=== PATIENT | female | born 1930 | race Caucasian/White ===

== ENCOUNTER 2018-06-28 07:39 | Outpatient (RCR) | payer MEDICARE, MEDICAID | END 2018-09-07 | disposition home or self-care (01) | LOC: ONC 07:39 | PROVIDERS: ATTEND Radiology Radiation Oncology | DX: Z51.0 Encounter for antineoplastic radiation therapy (principal); C50.911 Malignant neoplasm of unspecified site of right female breast; C79.51 Secondary malignant neoplasm of bone | CPT/HCPCS: 77280; 77290; 77295; 77300; 77334; 77336; 77417; 77470; 99214 ==

== ENCOUNTER 2018-09-19 04:10 | Inpatient (IN) | payer MEDICARE, MEDICAID ==
[2018-09-19] VITALS (24 sets, daily range): BP systolic 106–163; BP diastolic 56–108
[~2018-09-19] VITALS: Ht 149.9 cm; Wt 54.0 kg
[2018-09-19] MEDS ORDERED: DILTIAZEM IV FOR DRIP 125 MG in NS (IVPB) 100 ML IV SCH (05:00)
[2018-09-19 05:26] LABS: BASOPHILS # (AUTO) 0.1 10^3/uL (0.0-0.1); BASOPHILS % (AUTO) 1 % (0-10); EOSINOPHILS # (AUTO) 0.4 10^3/uL (0.0-0.3); EOSINOPHILS % (AUTO) 7 % (0-10); HEMATOCRIT 32 % (35-52); HEMOGLOBIN 10.7 G/DL (11.5-16.0); LYMPHOCYTES # (AUTO) 0.7 X 10^3 (1.0-4.0); LYMPHOCYTES % (AUTO) 13 % (12-44); MEAN CORPUSCULAR HEMOGLOBIN 35 PG (25-34); MEAN CORPUSCULAR HGB CONC 34 G/DL (32-36); MEAN CORPUSCULAR VOLUME 103 FL (80-99); MEAN PLATELET VOLUME 9.4 FL (7.4-10.4); MONOCYTES # (AUTO) 0.8 X 10^3 (0.0-1.0); MONOCYTES % (AUTO) 14 % (0-12); NEUTROPHILS # (AUTO) 3.6 X 10^3 (1.8-7.8); NEUTROPHILS % (AUTO) 65 % (42-75); PLATELET COUNT 227 10^3/uL (130-400); RED CELL DISTRIBUTION WIDTH 13.5 % (10.0-14.5); WHITE BLOOD COUNT 5.5 10^3/uL (4.3-11.0)
--- NOTE | 2018-09-19 05:27 | Pulmonary Consultation ---
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 Allergies and Home Medications Allergies Coded Allergies: cefdinir (Verified Allergy, Mild, 09/19/18) esomeprazole (Verified Allergy, Mild, 09/19/18) metoclopramide (Verified Allergy, Mild, 09/19/18) Sepsis Event Evaluation Height, Weight, BMI Height: '" Weight: lbs. oz. kg; BMI Method: Exam Exam Vital Signs Date Time Temp Pulse Resp B/P (MAP) Pulse Ox O2 Delivery O2 Flow Rate FiO2 09/19/18 04:15 98.2 76 16 115/56 (75) 99 Room Air Height & Weight Height: '" Weight: lbs. oz. kg; BMI Method: Assessment/Plan Assessment/Plan Afib rvr -Cardizem gtt -Cardiology consulted -NS at 75 -Labs and CXR pending Hx of breast cancer with mets to bone and lung -Undergoing chemo/radiation JULIET LINARES DO Sep 19, 2018 05:27
[2018-09-19 05:47] LABS: BUN/CREATININE RATIO 20; CALCIUM 9.1 MG/DL (8.5-10.1); CARBON DIOXIDE 18 MMOL/L (21-32); CHLORIDE 105 MMOL/L (98-107); CREATININE SERUM 1.22 MG/DL (0.60-1.30); GFR ESTIMATED 42; GLUCOSE 112 MG/DL (70-105); MAGNESIUM 2.1 MG/DL (1.8-2.4); PHOSPHORUS 4.3 MG/DL (2.3-4.7); POTASSIUM 4.6 MMOL/L (3.6-5.0); SODIUM 135 MMOL/L (135-145)
[2018-09-19] MEDS: KCL 20 MEQ TAB (K-DUR) PO SCH (06:03)
[2018-09-19] MEDS: POTASSIUM CL 10MEQ/50ML IVPB 50 ML IV SCH (06:03)
[2018-09-19] MEDS: MAGNESIUM 1 GM/100 ML IVPB 100 ML IV SCH (06:03)
[2018-09-19] MEDS ORDERED: ENOXAPARIN 60 MG/0.6 ML (LOVENOX) SYR SC SCH (08:00)
[2018-09-19] MEDS: NS IV 1000 ML 1,000 ML IV SCH ×2 (08:05→19:33)
--- NOTE | 2018-09-19 11:29 | History & Physical-Hospitalist ---
History of Present Illness HPI/Chief Complaint The patient is an 88-year-old female from the [place], [place] area. She had presented to the emergency room there and was found to have an apparent new onset atrial fibrillation with rapid ventricular response in addition she has known metastatic carcinoma of the breast. The physician in the emergency room [facility]. He had placed her on a Cardizem drip and had observed her to revert to a sinus rhythm. She apparently had some problem with the thought of transfer to [facility] and [facility]ol[facility] was on admission diversion. Therefore he called the switch board to speak to the hospitalist and it was agreed that she be transferred here. When she arrived she had been off of her Cardizem drip and had reverted to her atrial fibrillation. Cardiology had been consulted. Date Seen 09/19/18 Time Seen by a Provider: 12:00 Attending Physician Duke Meneses MD PCP Referring Physician Date of Admission Sep 19, 2018 at 04:10 Home Medications & Allergies Home Medications Reviewed patient Home Medication Reconciliation performed by pharmacy medication reconciliations x ray service technician and/or nursing. Patients Allergies have been reviewed. Allergies Allergies Coded Allergies cefdinir (Verified Allergy, Mild, 09/19/18) esomeprazole (Verified Allergy, Mild, 09/19/18) metoclopramide (Verified Allergy, Mild, 09/19/18) Past Vihnvne-Ifybxy-Wvumca Hx Patient Social History Alcohol Use: Denies Use Recreational Drug Use: No Physical Abuse Screen: No Sexual Abuse: No Recent Hopitalizations: No Seasonal Allergies Seasonal Allergies: No Past Medical History Cancer: Bone, Lung, Breast Did You Recieve Any Treatments: Yes What Type of Treatment Did You: Chemotherapy, Radiation, Surgical Intervention Cancer: RIGHT MASTECTOMY History of Blood Disorders: No Adverse Reaction to Blood Hernandez: No Review of Systems Constitutional: see HPI EENTM: no symptoms reported Respiratory: dyspnea on exertion Cardiovascular: other (although not previously documented, the patient reports that she has had this sensation of palpitations before.) Gastrointestinal: nausea, vomiting Genitourinary: no symptoms reported Musculoskeletal: no symptoms reported Skin: no symptoms reported Psychiatric/Neurological: No Symptoms Reported Physical Exam Physical Exam Vital Signs Vital Signs - First Documented 09/19/18 04:15 Temp 98.2 Capillary Refill : Less Than 3 Seconds Height, Weight, BMI Height: 4'11.00" Weight: 115lbs. 1.0oz. [id number]; 23.2 BMI Method: General Appearance: No Apparent Distress, WD/WN Eyes: Bilateral Eye Normal Inspection HEENT: Normal ENT Inspection Neck: Full Range of Motion Respiratory: Chest Non Tender, Lungs Clear, Normal Breath Sounds, No Accessory Muscle Use, No Respiratory Distress Cardiovascular: Other (the patient is presently in a sinus rhythm with relatively frequent PVCs.) Gastrointestinal: Normal Bowel Sounds, No Organomegaly, No Pulsatile Mass Back: Normal Inspection Neurologic/Psychiatric: Alert, Oriented x3, No Motor/Sensory Deficits, Normal Mood/Affect Skin: Normal Color, Warm/Dry Lymphatic: No Adenopathy Results Results/Procedures Labs Laboratory Tests 09/19/18 05:20 Patient resulted labs reviewed. Assessment/Plan Admission Diagnosis Atrial fibrillation with rapid ventricular response. 2.history of breast cancer (1998) with metastasis (2004). Admission Status: Observation Clinical Quality Measures DVT/VTE Risk/Contraindication: Risk Factor Score Per Nursin RFS Level Per Nursing on Admit: 4+=Very High DUKE MENESES MD Sep 19, 2018 11:29
--- NOTE | 2018-09-19 11:33 | Diagnostic Imaging Report ---
INDICATION: History of lung cancer. TECHNIQUE: Single view chest 7:03 AM. CORRELATION STUDY: None FINDINGS: Given limited depth of inspiration, heart size, mediastinum, and vasculature overall within normal limits. There is asymmetric parenchymal density right lung base, may reflect small area of infiltrate along with small right pleural effusion versus pleural thickening. IMPRESSION: 1. Consolidation with atelectasis or infiltrate of the right lung base along with small right pleural effusion versus pleural thickening. Followup imaging as clinically warranted. Dictated by: Dictated on workstation # [id number]
[2018-09-19] MEDS ORDERED: CATHETER FLUSH 10 ML SYR IV PRN (12:00)
--- NOTE | 2018-09-19 12:49 | Consultation-Cardiology ---
HPI-Cardiology Cardiology Consultation: Date of Consultation 09/19/18 Time Seen by a Provider: 12:30 Date of Admission Attending Physician David Bingham MD Admitting Physician Consulting Physician COOKIE CHAPPELL MD, MA, FACP, FACC, FSCAI, CCDS Physician requesting consult: Dr Bingham HPI: Chief Complaint: CC: Malaise, nausea, vomiting HPI 88 yo woman who presented to [place] [facility] with nausea and vomiting and found to have A Fib with RVR. Denies cp or palp. Does not fatigue and some shortness of breath. Denies fever or chills. Denies leg swelling or syncope. Denies diarrhea or constipation Review of Systems-Cardiology Review of Systems Constitutional: As described under HPI Eyes: No vision change Ears/Nose/Throat: No ear discharge, No nasal drainage, No recent hearing loss Respiratory: As described under HPI Cardiovascular: As described under HPI Gastrointestinal: As described under HPI Genitourinary: No dysuria, No hematuria, No urine frequency changes Musculoskeletal: back pain (chronic) Skin: No rash, No ulcerations Psychiatric/Neurological: No seizure, No focal weakness, No syncope Hematologic: No bleeding abnormalities QLM-[id number]-[id number] Hx Patient Social History Alcohol Use: Denies Use Recreational Drug Use: No Physical Abuse Screen: No Sexual Abuse: No Past Medical History PMH As described under Assessment. Family Medical History Family Medical History: Does not report fam h/o early CAD or SCD Allergies and Home Medications Allergies Coded Allergies: cefdinir (Verified Allergy, Mild, 09/19/18) esomeprazole (Verified Allergy, Mild, 09/19/18) metoclopramide (Verified Allergy, Mild, 09/19/18) Patient Home Medication List Home Medication List Reviewed: Yes Physical Exam-Cardiology Physical Exam Vital Signs/I&O 09/19/18 09/19/18 09/19/18 09/19/18 04:00 04:00 04:15 04:30 Temp 98.2 Pulse 110 76 76 Resp 15 16 14 B/P (MAP) 111/66 (81) 115/56 (75) 115/70 (85) Pulse Ox 96 99 96 O2 Delivery Room Air Room Air Room Air Room Air 09/19/18 09/19/18 09/19/18 09/19/18 04:45 05:00 06:00 07:00 Pulse 86 102 91 144 Resp 20 20 13 15 B/P (MAP) 106/75 (85) 111/64 (80) 129/78 (95) 159/108 (125) Pulse Ox 97 96 96 93 O2 Delivery Room Air Room Air Room Air Room Air 09/19/18 09/19/18 09/19/18 09/19/18 07:28 08:00 08:00 09:00 Pulse 112 97 73 Resp 12 16 B/P (MAP) 163/77 (105) 146/58 (87) Pulse Ox 94 94 94 O2 Delivery Room Air Room Air Room Air 09/19/18 09/19/18 09/19/18 09/19/18 10:00 11:00 12:00 12:00 Pulse 86 80 89 Resp 8 18 17 B/P (MAP) 135/73 (93) 121/72 (88) 149/73 (98) Pulse Ox 95 95 94 97 O2 Delivery Room Air Room Air Room Air Room Air Capillary Refill : Less Than 3 Seconds Constitutional: AAO x 3, well-developed, other (thin appearing) HEENT: PERRL, EOMI, hearing is well preserved; No xanthelasmas are seen Neck: carotid pulses are 2 + bilaterally, with good upstrokes Cardiovascular: regular rate-rhythm, S1 and S2, systolic murmur (soft SALAS at card base) Gastrointestinal: No tender; soft; No guarding, No rebound; audible bowel s ounds Extremities: No clubbing, No cyanosis, No significant edema Neurologic/Psychiatric: oriented x 3, grossly intact, power is 5/5 both on sides Skin: No rash on exposed areas, No ulcerations on exposed areas Data Review Labs Laboratory Tests 09/19/18 05:20: White Blood Count 5.5, Red Blood Count 3.10L, Hemoglobin 10.7L, Hematocrit 32L, Mean Corpuscular Volume 103H, Mean Corpuscular Hemoglobin 35H, Mean Corpuscular Hemoglobin Concent 34, Red Cell Distribution Width 13.5, Platelet Count 227, Mean Platelet Volume 9.4, Neutrophils (%) (Auto) 65, Lymphocytes (%) (Auto) 13, Monocytes (%) (Auto) 14H, Eosinophils (%) (Auto) 7, Basophils (%) (Auto) 1, Neutrophils # (Auto) 3.6, Lymphocytes # (Auto) 0.7L, Monocytes # (Auto) 0.8, E osinophils # (Auto) 0.4H, Basophils # (Auto) 0.1, Sodium Level 135, Potassium Level 4.6, Chloride Level 105, Carbon Dioxide Level 18L, Anion Gap 12, Blood Ure a Nitrogen 24H, Creatinine 1.22, Estimat Glomerular Filtration Rate 42, BUN/Creatinine Ratio 20, Glucose Level 112H, Calcium Level 9.1, Phosphorus Level 4.3, Magnesium Level 2.1, Troponin I < 0.028 Laboratory Tests 09/19/18 05:20 A/P-Cardiology Assessment/Admission Diagnosis PAF H/o metastatic breast CA. [facility] of undetermined [facility]. Diagnosis and treatment is with the Med Svce Discussion and Recomendations * Change to oral dilt * Add apixaban for stroke prophylaxis. Lower dose because age greater than 80 and body wgt less than 60 kg * Echo to eval for structural heart disease * Check TSH * Monitor labs * I discussed her case with Dr Bingham this am Clinical Quality Measures DVT/VTE Risk/Contraindication: Risk Factor Score Per Nursin RFS Level Per Nursing on Admit: 4+=Very High COOKIE CHAPPELL MD FACP FAC CCDS Sep 19, 2018 12:49
[2018-09-19] MEDS ORDERED: DILTIAZEM 180 MG (CARDIZEM CD) CAP PO NR (13:00)
--- NOTE | 2018-09-19 19:53 | NUR ---
SANCHO, DAUGHTER TO PT, CALLED AND ASKED FOR AN UPDATE. SHE INQUIRED IF THE HEART ISSUE WAS RELATED TO HER CHEMO. ADVISED HER THAT THE DR. REPORTS DO NOT INDICATE THIS BUT IT IS SOMETHING SHE CAN ASK THE DR. SHE ASKED THAT I INFORM PT THAT SHE CALLED.
--- NOTE | 2018-09-19 20:16 | NUR ---
PT ATE 50% OF HER SANDWICH.
[2018-09-19] MEDS: APIXABAN 2.5 MG (ELIQUIS) TABLET PO SCH (20:34)
[2018-09-20] VITALS (16 sets, daily range): BP systolic 96–129; BP diastolic 50–96
--- NOTE | 2018-09-20 00:43 | NUR ---
GAVE REPORT TO SHELDON AHUJA.
[2018-09-20] MEDS: NS IV 1000 ML 1,000 ML IV SCH ×2 (01:30→20:09)
[2018-09-20 02:51] LABS: BASOPHILS # (AUTO) 0.1 10^3/uL (0.0-0.1); BASOPHILS % (AUTO) 2 % (0-10); EOSINOPHILS # (AUTO) 0.6 10^3/uL (0.0-0.3); EOSINOPHILS % (AUTO) 9 % (0-10); HEMATOCRIT 29 % (35-52); HEMOGLOBIN 9.9 G/DL (11.5-16.0); LYMPHOCYTES # (AUTO) 1.1 X 10^3 (1.0-4.0); LYMPHOCYTES % (AUTO) 18 % (12-44); MEAN CORPUSCULAR HEMOGLOBIN 35 PG (25-34); MEAN CORPUSCULAR HGB CONC 34 G/DL (32-36); MEAN CORPUSCULAR VOLUME 101 FL (80-99); MEAN PLATELET VOLUME 9.3 FL (7.4-10.4); MONOCYTES # (AUTO) 0.9 X 10^3 (0.0-1.0); MONOCYTES % (AUTO) 14 % (0-12); NEUTROPHILS # (AUTO) 3.5 X 10^3 (1.8-7.8); NEUTROPHILS % (AUTO) 57 % (42-75); PLATELET COUNT 227 10^3/uL (130-400); RED CELL DISTRIBUTION WIDTH 13.3 % (10.0-14.5); WHITE BLOOD COUNT 6.1 10^3/uL (4.3-11.0)
[2018-09-20 03:11] LABS: CALCIUM 8.4 MG/DL (8.5-10.1); CREATININE SERUM 0.91 MG/DL (0.60-1.30); MAGNESIUM 2.2 MG/DL (1.8-2.4); PHOSPHORUS 3.6 MG/DL (2.3-4.7); POTASSIUM 4.3 MMOL/L (3.6-5.0)
[2018-09-20] MEDS: POTASSIUM CL 10MEQ/50ML IVPB 50 ML IV SCH (03:27)
[2018-09-20] MEDS: MAGNESIUM 1 GM/100 ML IVPB 100 ML IV SCH (03:28)
[2018-09-20] MEDS: KCL 20 MEQ TAB (K-DUR) PO SCH (03:28)
--- NOTE | 2018-09-20 07:47 | Diagnostic Imaging Report ---
Indication: Dyspnea Comparison: 09/19/2018 Technique: Single radiograph of the chest dated 09/20/2018. Findings: The cardiac silhouette is within normal limits in size. No significant pulmonary vascular congestion. Right basilar pleural-parenchymal opacity is again identified, appearing slightly more prominent than the prior examination. The left lung appears clear. No severe left pleural effusion. No pneumothorax. Surgical clips in right upper quadrant of the abdomen. Focal sclerosis is noted within the right humeral neck. No acute fracture. Impression: Slightly increasing pleural-parenchymal opacity in the peripheral right lung base. This is felt to relate to a combination of pleural fluid with adjacent atelectasis and/or infiltrate. Associated pleural thickening may be present. Sclerosis within the right humeral neck, felt to relate to a bone infarction versus low-grade chondroid lesion. Additional findings as above. Dictated by: Dictated on workstation # [id number]
[2018-09-20] MEDS ORDERED: ENOXAPARIN 60 MG/0.6 ML (LOVENOX) SYR SC SCH (08:00)
--- NOTE | 2018-09-20 08:14 | Pulmonary Progress Note ---
Subjective Time Seen by a Provider: 08:13 Subjective/Events-last exam Pt is doing better. Sepsis Event Evaluation Height, Weight, BMI Height: 4'11.00" Weight: 120lbs. 0.2oz. 54.785514bp; 23.2 BMI Method: Exam Exam Vital Signs Date Time Temp Pulse Resp B/P (MAP) Pulse Ox O2 Delivery O2 Flow Rate FiO2 09/20/18 08:00 104 24 112/71 (85) 94 Room Air 09/20/18 07:00 98 24 121/62 (81) 93 Room Air 09/20/18 07:00 98 09/20/18 06:00 108 20 107/71 (83) 93 Room Air 09/20/18 06:00 97.8 09/20/18 05:00 89 19 107/77 (87) 94 Room Air 09/20/18 05:00 98.5 09/20/18 04:00 93 Room Air 09/20/18 04:00 99 17 113/71 (85) 94 Room Air 09/20/18 03:32 98.7 09/20/18 03:00 93 15 100/60 (73) 94 Room Air 09/20/18 02:00 99 16 102/63 (76) 92 Room Air 09/20/18 01:00 84 09/20/18 01:00 71 17 115/61 (79) 93 Room Air 09/20/18 00:08 94 Room Air 09/20/18 00:00 91 18 129/69 (89) 93 Room Air 09/19/18 23:47 97.9 09/19/18 23:00 73 21 116/66 (83) 94 Room Air 09/19/18 22:00 73 19 107/60 (76) 94 Room Air 09/19/18 21:00 71 16 111/70 (84) 94 Room Air 09/19/18 20:00 79 16 112/60 (77) 96 Room Air 09/19/18 20:00 99.8 09/19/18 19:43 94 Room Air 09/19/18 19:41 80 18 109/69 (82) 96 Room Air 09/19/18 19:00 86 16 109/69 (82) 95 Room Air 09/19/18 19:00 85 09/19/18 18:00 90 115/73 (87) 95 Room Air 09/19/18 17:00 96 19 108/87 (94) 97 Room Air 09/19/18 16:00 97.8 09/19/18 16:00 94 Room Air 09/19/18 16:00 78 37 129/97 (108) 95 Room Air 09/19/18 15:00 77 13 123/63 (83) 94 Room Air 09/19/18 14:00 75 8 128/66 (86) 95 Room Air 09/19/18 13:00 79 13 120/64 (82) 96 Room Air 09/19/18 12:45 89 09/19/18 12:00 89 17 149/73 (98) 97 Room Air 09/19/18 12:00 94 Room Air 09/19/18 11:00 80 18 121/72 (88) 95 Room Air 09/19/18 10:00 86 8 135/73 (93) 95 Room Air 09/19/18 09:00 73 16 146/58 (87) 94 Room Air I & O 09/20/18 07:00 Intake Total 2170 ml Balance 2170 ml Height & Weight Height: 4'11.00" Weight: 120lbs. 0.2oz. 54.355621gt; 23.2 BMI Method: General Appearance: No Apparent Distress, WD/WN HEENT: Normal ENT Inspection Neck: Full Range of Motion Respiratory: Chest Non Tender, Lungs Clear, Normal Breath Sounds, No Accessory Muscle Use, No Respiratory Distress Cardiovascular: Other (the patient is presently in a sinus rhythm with rela tively frequent PVCs.) Extremity: Normal Capillary Refill, Normal Inspection, No Pedal Edema Neurologic/Psychiatric: Alert, Oriented x3, No Motor/Sensory Deficits, Normal Mood/Affect Skin: Normal Color, Warm/Dry Lymphatic: No Adenopathy Results Lab Laboratory Tests 09/19/18 05:20 09/20/18 02:37 Assessment/Plan Assessment/Plan Afib rvr -Cardizem gtt is now off -Cardiology consulted Hx of breast cancer with mets to bone and lung -Undergoing chemo/radiation Anemia -Monitor JULIET LINARES DO Sep 20, 2018 08:14
[2018-09-20] MEDS ORDERED: DILTIAZEM 180 MG (CARDIZEM CD) CAP PO SCH (09:00)
--- NOTE | 2018-09-20 09:02 | Progress Note-Cardiology ---
Cardiology SOAP Progress Note Subjective: Weak and tired No palp or syncope Chronic exertional shortness of breath Objective: I&O/Vital Signs 09/19/18 09/19/18 09/19/18 09/20/18 22:00 23:00 23:47 00:00 Temp 97.9 Pulse 73 73 91 Resp 19 21 18 B/P (MAP) 107/60 (76) 116/66 (83) 129/69 (89) Pulse Ox 94 94 93 O2 Delivery Room Air Room Air Room Air 09/20/18 09/20/18 09/20/18 09/20/18 00:08 01:00 01:00 02:00 Pulse 71 84 99 Resp 17 16 B/P (MAP) 115/61 (79) 102/63 (76) Pulse Ox 94 93 92 O2 Delivery Room Air Room Air Room Air 09/20/18 09/20/18 09/20/18 09/20/18 03:00 03:32 04:00 04:00 Temp 98.7 Pulse 93 99 Resp 15 17 B/P (MAP) 100/60 (73) 113/71 (85) Pulse Ox 94 94 93 O2 Delivery Room Air Room Air Room Air 09/20/18 09/20/18 09/20/18 09/20/18 05:00 05:00 06:00 06:00 Temp 98.5 97.8 Pulse 89 108 Resp 19 20 B/P (MAP) 107/77 (87) 107/71 (83) Pulse Ox 94 93 O2 Delivery Room Air Room Air 09/20/18 09/20/18 09/20/18 09/20/18 07:00 07:00 08:00 08:00 Pulse 98 98 104 Resp 24 24 B/P (MAP) 121/62 (81) 112/71 (85) Pulse Ox 93 93 94 O2 Delivery Room Air Room Air Room Air 09/20/18 00:00 Intake Total 660 ml Balance 660 ml Weight (Pounds): 120 Weight (Ounces): 0.2 Weight (Calculated Kilograms): 54.372251 Constitutional: AAO x 3, well-developed, other (thin appearing) Cardiovascular: regular rate-rhythm, S1 and S2, systolic murmur (soft SALAS at card base) Gastrointestional: No tender; soft; No guarding, No rebound; audible bowel sounds Extremities: No clubbing, No cyanosis, No significant edema Neurologic/Psychiatric: oriented x 3, grossly intact, power is 5/5 both on sides Skin: No rash on exposed areas, No ulcerations on exposed areas Results/Procedures: Labs Laboratory Tests 09/20/18 02:37: White Blood Count 6.1, Red Blood Count 2.87L, Hemoglobin 9.9L, Hematocrit 29L, Mean Corpuscular Volume 101H, Mean Corpuscular Hemoglobin 35H, Mean Corpuscular Hemoglobin Concent 34, Red Cell Distribution Width 13.3, Platelet Count 227, Mean Platelet Volume 9.3, Neutrophils (%) (Auto) 57, Lymphocytes (%) (Auto) 18, Monocytes (%) (Auto) 14H, Eosinophils (%) (Auto) 9, Basophils (%) (Auto) 2, Neutrophils # (Auto) 3.5, Lymphocytes # (Auto) 1.1, Monocytes # (Auto) 0.9, Eosinophils # (Auto) 0.6H, Basophils # (Auto) 0.1, Sodium Level 137, Potassium Level 4.3, Chloride Level 108H, Carbon Dioxide Level 19L, Anion Gap 10, Blood Urea Nitrogen 16, Creatinine 0.91, Estimat Glomerular Filtration Rate 59, BUN/Creatinine Ratio 18, Glucose Level 104, Calcium Level 8.4L, Phosphorus Level 3.6, Magnesium Level 2.2, Thyroid Stimulating Hormone (TSH) 1.68 Laboratory Tests 09/19/18 05:20 09/20/18 02:37 A/P: Assessment: PAF H/o metastatic breast CA. Managed by Jennifer [facility] at [facility] Mild anemia of undetermined etiology. Diagnosis and treatment is with the Med Svchristine TSH normal on 09/20/18 Plan: * Increase oral dilt to provide better rate control * Continue apixaban for stroke prophylaxis. Lower dose because age greater than 80 and body wgt less than 60 kg * Echo to eval for structural heart disease * Monitor labs COOKIE CHAPPELL MD FACP FAC CCDS Sep 20, 2018 09:02
[2018-09-20] MEDS: APIXABAN 2.5 MG (ELIQUIS) TABLET PO SCH ×2 (09:27→20:04)
[2018-09-20] MEDS: DILTIAZEM 240 MG (CARDIZEM CD) CAP PO SCH (09:27)
--- NOTE | 2018-09-20 11:35 | NUR ---
Report received from Ismael CHUNG, patient sitting in chair in room, patient and family oriented to room, and call light. Will continue to monitor.
[2018-09-20] MEDS ORDERED: GABA-488 PO (13:50)
[2018-09-20] MEDS ORDERED: HYDR-3812 PO (13:50)
[2018-09-20] MEDS ORDERED: FENT1PAT9 TD (13:50)
[2018-09-20] MEDS ORDERED: METF500T8 PO (13:50)
[2018-09-20] MEDS ORDERED: PANT40TA3 PO (13:50)
[2018-09-20] MEDS ORDERED: NFCAPE500T PO (13:50)
[2018-09-20] MEDS ORDERED: LISI-552 PO (13:50)
[2018-09-20] MEDS ORDERED: ONDA4TAB11 PO (13:50)
--- NOTE | 2018-09-20 13:53 | NUR ---
SPOKE WITH THE PATIENT ABOUT HER MEDICATIONS. SHE HAD HER BOTTLES WITH HER AND VERIFIED HOW SHE TAKES THEM. SHE FILLED PROCHLORPERAZINE RECENTLY AND DOES HAVE THE BOTTLE HOWEVER STATES HER TOLD HER NOT TO TAKE THIS, HE ONLY WANTS HER TO TAKE THE ZOFRAN ODT SHE HAS IN HER PURSE. HER XELODA BOTTLE SHE HAS WITH HER WAS FILLED 08-11-18 XELODA 500MG 2 BID X 14 DAYS THEN OFF 7 DAYS THEN REPEAT. SHE STATES SHE ONLY TAKES 1 TAB BID, I POINTED OUT THAT IS NOT HOW IT IS PRESCRIBED AND ASKED IF THEY HAD DECREASED HER DOSE. SHE STATES NO, SHE IS ONLY EVER SUPPOSED TO TAKE 1 TAB BID FOR 2 WEEKS THEN OFF FOR 1 WEEK. I PUT IT ON THE MED REC SHE REPORTS TAKING IT.
--- NOTE | 2018-09-20 16:11 | History & Physical-Hospitalist ---
History of Present Illness HPI/Chief Complaint The patient is an 88-year-old female from the [place], [place] area. She had presented to the emergency room there and was found to have an apparent new onset atrial fibrillation with rapid ventricular response in addition she has known metastatic carcinoma of the breast. The physician in the emergency room [facility] He had placed her on a Cardizem drip and had observed her to revert to a sinus rhythm. She apparently had some problem with the thought of transfer to [facility] and Phyllis was on admission diversion. Therefore he called the switch board to speak to the hospitalist and it was agreed that she be transferred here. When she arrived she had been off of her Cardizem drip and had reverted to her atrial fibrillation. Cardiology had been consulted. Date Seen 09/20/18 Attending Physician David Meneses MD PCP Referring Physician Date of Admission Sep 19, 2018 at 14:11 Home Medications & Allergies Home Medications Reviewed patient Home Medication Reconciliation performed by pharmacy medication reconciliations health record technician and/or nursing. Patients Allergies have been reviewed. Allergies Allergies Coded Allergies cefdinir (Verified Allergy, Mild, 09/19/18) esomeprazole (Verified Allergy, Mild, 09/19/18) metoclopramide (Verified Allergy, Mild, 09/19/18) Past Gplfqge-Wbmmgt-Vxpqih Hx Past Med/Social Hx: Reviewed Nursing Past Med/Soc Hx Patient Social History Alcohol Use: Denies Use Recreational Drug Use: No Physical Abuse Screen: No Sexual Abuse: No Recent Hopitalizations: No Seasonal Allergies Seasonal Allergies: No Past Medical History Cancer: Bone, Lung, Breast Did You Recieve Any Treatments: Yes What Type of Treatment Did You: Chemotherapy, Radiation, Surgical Intervention Cancer: RIGHT MASTECTOMY History of Blood Disorders: No Adverse Reaction to Blood Hernandez: No Review of Systems Constitutional: see HPI EENTM: no symptoms reported Respiratory: dyspnea on exertion Cardiovascular: palpitations Genitourinary: no symptoms reported Musculoskeletal: no symptoms reported Skin: no symptoms reported Psychiatric/Neurological: No Symptoms Reported Physical Exam Physical Exam Vital Signs Vital Signs - First Documented 09/19/18 04:15 Temp 98.2 Capillary Refill : Less Than 3 Seconds Height, Weight, BMI Height: 4'11.00" Weight: 120lbs. 0.2oz. 54.495643du; 23.2 BMI Method: General Appearance: No Apparent Distress, WD/WN HEENT: Normal ENT Inspection Neck: Full Range of Motion, Normal Inspection Respiratory: Chest Non Tender, Lungs Clear, Normal Breath Sounds, No Accessory Muscle Use, No Respiratory Distress Cardiovascular: Regular Rate, Rhythm, No Edema, No Gallop, No JVD, No Murmur, Normal Peripheral Pulses, Other (PVCs noted on monitor) Gastrointestinal: Normal Bowel Sounds, No Organomegaly, No Pulsatile Mass Extremity: Normal Capillary Refill, Normal Inspection, Normal Range of Motion Neurologic/Psychiatric: Alert, Oriented x3, No Motor/Sensory Deficits, Normal Mood/Affect Results Results/Procedures Labs Laboratory Tests 09/19/18 05:20 09/20/18 02:37 Patient resulted labs reviewed. Assessment/Plan Admission Diagnosis Atrial fibrillation with rapid ventricular response. 2.history of breast cancer (1998) with metastasis (2004). Admission Status: Inpatient Order (span 2 midnights) Reason for Inpatient Admission: Stabilization will require greater than to midnight Clinical Quality Measures DVT/VTE Risk/Contraindication: Risk Factor Score Per Nursin RFS Level Per Nursing on Admit: 4+=Very High DAVID MENESES MD Sep 20, 2018 16:11
--- NOTE | 2018-09-20 23:23 | NUR ---
THIS RN CALLED DR. CHAPPELL IN REGARDS TO [employer] [employer] CALLING AND NOTIFYING THIS RN THAT THE PATIENT HAS BEEN IN ATRIAL FLUTTER SINCE 2252. BLOOD PRESSURE: 105/52, HEART RATE: 80 BPM, OXYGEN SATURATION: 95% RA. PT IS ASYMPTOMATIC. EKG DONE PER PROTOCOL SHOWING ATRIAL FIBRILLATION. NO NEW ORDERS AT THIS TIME. WILL CONTINUE TO MONITOR.
[2018-09-21 03:39] VITALS: BP 100/68
[2018-09-21 08:00] VITALS: BP_SYST 119; BP_SYST 120; BP_DIAS 68; BP_DIAS 70
[2018-09-21] MEDS: DILTIAZEM 240 MG (CARDIZEM CD) CAP PO SCH (08:25)
[2018-09-21] MEDS: APIXABAN 2.5 MG (ELIQUIS) TABLET PO SCH (08:25)
[2018-09-21] MEDS: NS IV 1000 ML 1,000 ML IV SCH (10:03)
[2018-09-21 12:00] VITALS: BP 119/68
--- NOTE | 2018-09-21 12:20 | Cardiology Progress Note ---
Subjective Date Seen by Provider: Sep 21, 2018 Time Seen by Provider: 12:18 Subjective/Events-last exam patient is laying down in bed, feeling better. No new complaint. Back to sinus rhythm Review of Systems General: No Chills, No Night Sweats, No Fatigue, No Malaise, No Appetite, No Other HEENT: No Head Aches, No Visual Changes, No Eye Pain, No Ear Pain, No Dysphasia, No Sinus Congestion, No Post Nasal Drip, No Sore Throat, No Other Pulmonary: No Dyspnea, No Cough, No Pleuritic Chest Pain, No Other Cardiovascular: No: Chest Pain, Palpitations, Orthopnea, Paroxysmal Noc. Dyspnea, Edema, Lt Headedness, Other Objective-Cardiology Exam Last Set of Vital Signs Vital Signs 09/21/18 09/21/18 08:00 09:00 Temp 97.8 Pulse 69 Resp 20 B/P (MAP) 120/70 (87) Pulse Ox 99 O2 Delivery Room Air Capillary Refill : Less Than 3 Seconds I&O Intake and Output 09/21/18 00:00 Intake Total 2070 ml Balance 2070 ml Intake Oral 1070 ml IV Total 1000 ml # Voids 4 General: Alert, Oriented X3, Cooperative HEENT: Atraumatic, PERRLA Neck: Supple, No JVD, No Thyromegaly Lungs: Clear to Auscultation, Normal Air Movement Heart: Regular Rate, Normal S1, Normal S2, No Murmurs Abdomen: Normal Bowel Sounds, Soft, No Tenderness, No Hepatosplenomegaly, No Masses Extremities: No Clubbing, No Cyanosis, No Edema, Normal Pulses, No Tenderness/Swelling Skin: No Rashes, No Breakdown, No Significant Lesion Neuro: Normal Gait, Normal Speech, Strength at 5/5 X4 Ext, Normal Tone, Sensation Intact Psych/Mental Status: Mental Status NL, Mood NL A/P-Cardiology Admission Diagnosis Paroxysmal atrial fibrillation Breast cancer Anemia Palpitation Assessment/Plan PAF, back to sinus rhythm, rate is controlled, tolerating medication well. Okay for discharge and follow-up with Dr. Brown as an outpatient. Discussed with Dr. Kaba H/o metastatic breast CA. Man[facility] by [facility] Mild anemia of undetermined etiology. Diagnosis and treatment is with the Med Svce TSH normal on 09/20/18 Clinical Quality Measures DVT/VTE Risk/Contraindication: Risk Factor Score Per Nursin RFS Level Per Nursing on Admit: 4+=Very High GHASSAN GONSALEZ MD Sep 21, 2018 12:20
--- NOTE | 2018-09-21 13:11 | Progress Note-Hospitalist ---
Progress Note Progress Notes/Assess & Plan Date Seen 09/21/18 Time Seen by Provider: 13:07 Assessment & Plan The patient reports to feeling good. She has been cleared by cardiology for discharge. She has no additional questions or concerns. Her son is to be calling back soon in order to provide transportation. Physical exam: She is alert and oriented. Lungs are clear to auscultation. CV is regular with occasional PVC. Extremities show no pedal edema. Impression: Atrial fibrillation with rapid ventricular response now converted with medications. 2.frequent PVCs. Plan: Discharge. See discharge sequence for medications and routines. DUKE MENESES MD Sep 21, 2018 13:11
[2018-09-21] MEDS ORDERED: DILT240C97 PO (13:14)
[2018-09-21] MEDS ORDERED: APIX2.5T PO (13:14)
--- NOTE | 2018-09-21 13:22 | Discharge Inst-Simple/Standard ---
Discharge Inst-Standard Patient Instructions/Follow Up Plan of Care/Instructions/FU: Medications as listed on the discharge sequence. Your medications will be chronic and your local provider will need to do refills for you. Increase activities as Activity as Tolerated: Yes Goal: Stability at home Discharge Diet: ADA Diet DUKE MENESES MD Sep 21, 2018 13:22
--- NOTE | 2018-09-21 14:54 | Pulmonary Progress Note ---
Subjective Time Seen by a Provider: 07:00 Subjective/Events-last exam No complications noted. PT is doing well. Sepsis Event Evaluation Height, Weight, BMI Height: 4'11.00" Weight: 119lbs. 2.0oz. 54.282006no; 23.2 BMI Method: Exam Exam Vital Signs Date Time Temp Pulse Resp B/P (MAP) Pulse Ox O2 Delivery O2 Flow Rate FiO2 09/21/18 13:00 83 09/21/18 12:00 97.3 70 20 119/68 (85) 97 Room Air 09/21/18 09:00 Room Air 09/21/18 08:00 97.8 69 20 120/70 (87) 99 Room Air 09/21/18 07:00 67 09/21/18 03:39 97.6 83 17 100/68 (79) 96 Room Air 09/21/18 01:00 54 09/20/18 23:10 98.4 80 20 105/52 (69) 95 Room Air 09/20/18 21:00 Room Air 09/20/18 20:00 98.3 70 20 109/64 (79) 96 Room Air 09/20/18 19:00 67 09/20/18 15:15 99.0 78 20 126/55 (78) 93 Room Air I & O 09/21/18 07:00 Intake Total 830 ml Output Total 200 ml Balance 630 ml Height & Weight Height: 4'11.00" Weight: 119lbs. 2.0oz. 54.601719fp; 23.2 BMI Method: General Appearance: No Apparent Distress, WD/WN HEENT: Normal ENT Inspection Neck: Full Range of Motion, Normal Inspection Respiratory: Chest Non Tender, Lungs Clear, Normal Breath Sounds, No Accessory Muscle Use, No Respiratory Distress Cardiovascular: Regular Rate, Rhythm, No Edema, No Gallop, No JVD, No Murmur, Normal Peripheral Pulses, Other (PVCs noted on monitor) Extremity: Normal Capillary Refill, Normal Inspection, Normal Range of Motion Neurologic/Psychiatric: Alert, Oriented x3, No Motor/Sensory Deficits, Normal Mood/Affect Skin: Normal Color, Warm/Dry Lymphatic: No Adenopathy Results Lab Laboratory Tests 09/20/18 02:37 Assessment/Plan Assessment/Plan Afib rvr -Cardizem gtt is now off -Cardiology consulted 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
[2018-09-21 15:55] VITALS: BP 119/68
== END 2018-09-21 15:55 | disposition home or self-care (01) | DRG 309 ==
LOC: ICU 04:10 → OBSVTOIN 14:11 → 4TH 09-20 11:23
PROVIDERS: ADMIT Internal Medicine; ATTEND Internal Medicine
DX: I48.0 Paroxysmal atrial fibrillation (principal); C78.01 Secondary malignant neoplasm of right lung; C79.51 Secondary malignant neoplasm of bone; Z85.3 Personal history of malignant neoplasm of breast; Z90.11 Acquired absence of right breast and nipple; D64.9 Anemia, unspecified
CPT/HCPCS: 36415; 71045; 80048; 83735; 84100; 84443; 84484; 85025; 87081; 93005; 93306; G0378

== ENCOUNTER 2020-07-08 14:45 | Emergency (ER) | payer MEDICARE, MEDICAID ==
[~2020-07-08] VITALS: Ht 147.5 cm; Wt 48.6 kg
[~2020-07-08 14:45] MED LIST: ACHD5005 PO; APIX2.5T PO; DILT240C92 PO; FENT1PAT9 TD; GABA-488 PO; LISI20TA26 PO; METF-865 PO; NFCAPE500T PO; ONDA4TAB11 PO; PANT40TA52 PO
--- NOTE | 2020-07-08 15:46 | ED Respiratory ---
General Chief Complaint: Respiratory Problems Stated Complaint: CA PT/VOMITING/COUGH/SOB Nursing Triage Note: Pt presents with her daughter ambulating to ED10. Pt c/o cough, cough, SOB, N/V x3 days. States she spoje with her oncologist Dr. Hernandez in [place] et they directed her to ED. Pt reports she has been taking Mucinex for symptoms but it is making her sleeping et hurting her stomach. Source: patient, family Exam Limitations: no limitations History of Present Illness Date Seen by Provider: Jul 08, 2020 Time Seen by Provider: 15:41 Initial Comments Patient is an 89-year-old female who presents to the emergency department today with a chief complaint of cough, shortness of breath mild headache this morning, 3 episodes of vomiting this morning. Patient states that she started feeling poorly about a week ago. She let her family know about 3 days ago that she felt bad. Patient denies any fevers or chills. She has had a clear rhinorrhea. Her cough is nonproductive. Patient states that she is not having posttussive emesis she is vomiting after eating. She has a history of metastatic breast cancer with metastasis "everywhere" per her and her family. Patient states that she is still getting active chemotherapy every 28 days. Her next due date is July 12. Patient has a history of atrial fibrillation anticoagulated on Eliquis. She is a type II diabetic. She is not vaccinated for Covid secondary to her chemotherapy. Patient denies any abdominal pain. She is not currently nauseated. She is not having any other GI or symptoms. All other review of systems reviewed and negative except as stated. Timing/Duration: week Severity: moderate Associated Symptoms: cough; No fever/chills; headache, nasal drainage Allergies and Home Medications Allergies Coded Allergies: cefdinir (Verified Allergy, Mild, 09/19/18) esomeprazole (Verified Allergy, Mild, 09/19/18) metoclopramide (Verified Allergy, Mild, 09/19/18) Home Medications Apixaban 2.5 Mg Tablet, 2.5 MG PO BID Prescribed by: DUKE MENESES on 09/21/18 1314 Capecitabine 500 Mg Tablet, 500 MG PO UD, (Reported) TAKES TWICE DAILY X 14 DAYS THEN OFF 7 DAYS THEN REPEAT Diltiazem HCl 240 Mg Cap.er.24h, 240 MG PO DAILY Prescribed by: DUKE MENESES on 09/21/18 1314 Fentanyl 1 Each Patch.td72, 50 MCG TD Q72H, (Reported) Gabapentin 300 Mg Capsule, 300 MG PO 0600,1200,1800, (Reported) Hydrocodone Bit/Acetaminophen 1 Each Tablet, 1-2 TAB PO Q4H PRN for PAIN- BREAKTHROUGH, (Reported) Lisinopril 20 Mg Tablet, 20 MG PO 1000, (Reported) Metformin HCl 500 Mg Tab.er.24h, 500 MG PO 1900, (Reported) Ondansetron 4 Mg Tab.rapdis, 4 MG PO Q6H PRN for NAUSEA/VOMITING-1ST LINE, (Reported) Pantoprazole Sodium 40 Mg Tablet.dr, 40 MG PO 1000, (Reported) Patient Home Medication List Home Medication List Reviewed: Yes Review of Systems Review of Systems Constitutional: see HPI EENTM: nose congestion (Rhinorrhea) Respiratory: cough, short of breath Cardiovascular: no symptoms reported Gastrointestinal: vomiting (X3 this morning) Genitourinary: no symptoms reported Musculoskeletal: joint pain (Chronic pain secondary to breast cancer metastasis) Skin: no symptoms reported Psychiatric/Neurological: No Symptoms Reported All Other Systems Reviewed Negative Unless Noted: Yes Past Lkzcmmq-Nphfrn-Vphgvw Hx Patient Social History Recent Infectious Disease Expo: No Recent Hopitalizations: No Seasonal Allergies Seasonal Allergies: No Past Medical History Surgeries: Yes Respiratory: No Cardiac: Yes Neurological: No : No Genitourinary: No Gastrointestinal: No Musculoskeletal: No Endocrine: Yes HEENT: No Cancer: Yes Bone, Lung, Breast Did You Recieve Any Treatments: Yes What Type of Treatment Did You: Chemotherapy, Radiation, Surgical Intervention Psychosocial: No Integumentary: No Blood Disorders: No Adverse Reaction/Blood Tranf: No Physical Exam Vital Signs - First Documented 07/08/20 15:20 Temp 36.7 Pulse 120 Resp 22 B/P (MAP) 140/97 (111) Pulse Ox 98 O2 Delivery Room Air Capillary Refill : Less Than 3 Seconds Height: 4'11.00" Weight: 119lbs. 2.0oz. 54.640254ew; 22.00 BMI Method: General Appearance: WD/WN, no apparent distress HEENT: PERRL/EOMI, normal ENT inspection, TMs normal, pharynx normal Neck: full range of motion, supple, normal inspection Respiratory: lungs clear, normal breath sounds, no respiratory distress, no accessory muscle use Cardiovascular: regular rate, rhythm Gastrointestinal: non tender, soft Extremities: non-tender, normal inspection, no pedal edema Neurologic/Psychiatric: no motor/sensory deficits, alert, normal mood/affect, oriented x 3 Skin: normal color, warm/dry Progress/Results/Core Measures Suspected Sepsis Recent Fever Within 48 Hours: No Infection Criteria Present: Suspected New Infection New/Unexplained Altered Menta: No Sepsis Screen: Possible Severe Sepsis Risk SIRS Temperature: Pulse: 120 Respiratory Rate: 22 Blood Pressure 140 /97 Mean: 111 Results/Orders Lab Results Laboratory Tests Test 07/08/20 16:43 Range/Units Coronavirus 2019 ([facility]) Negative Negative My Orders Orders - DARCY CONTEH MD Chest 1 View, Ap/Pa Only (07/08/20 15:59) Covid 19 Inhouse Test (07/08/20 15:59) Vital Signs/I&O 07/08/20 15:20 Temp 36.7 Pulse 120 Resp 22 B/P (MAP) 140/97 (111) Pulse Ox 98 O2 Delivery Room Air Capillary Refill : Less Than 3 Seconds Blood Pressure Mean: 111 Diagnostic Imaging Diagonstic Imaging: Xray Plain Films/CT/US/NM/MRI: chest Comments [facility], [place] NAME: HINA CORTEZ Mirta [facility] REC#: [id number] PT STATUS: REG ER : 1930 PHYSICIAN: DARCY CONTEH MD ADMIT DATE: 07/08/20/ER Draft Date of Exam:07/08/20 CHEST 1 VIEW, AP/PA ONLY INDICATION: Cough, shortness of breath, nausea and vomiting. COMPARISON: 09/20/2018. FINDINGS: Right IJ catheter at the low SVC. Pleural reaction or fluid in the right base and costophrenic angle is improved from the prior. No focal alveolar consolidation. There is some chronic prominence of the perihilar interstitial lung markings. There is a benign-appearing chondroid lesion of the proximal right humerus, stable. Some biapical pleural-parenchymal scarring, chronic. IMPRESSION: 1. Decreased pleural reaction in the right base. Chronic interstitial opacities and benign findings, as described. No adverse development demonstrated. 2. Central line placed in good position. No pneumothorax. Dictated on workstation # [id number] Dict: 07/08/20 1621 Trans: 07/08/20 1628 [facility] [id number] Interpreted by: DELVIS BECK Electronically signed by: Departure Impression Primary Impression: Bronchitis Disposition: HOME, SELF-CARE Condition: Stable Departure-Patient Inst. Decision time for Depature: 17:34 Referrals: NO,LOCAL PHYSICIAN (PCP/Family) Primary Care Physician Patient Instructions: Cough, Adult (DC), Bronchitis, Adult ED Add. Discharge Instructions: Take the antibiotics as prescribed. Continue your Mucinex in the evening time as it makes you sleepy. Always eat when you take it. Vicks [id number] may help with any congestion that you have. Please follow-up with your primary care provider/cancer provider. Return to the emergency room for any worsening symptoms, fever, persistent cough shortness of breath or other emergent concerns. Scripts Doxycycline Hyclate (Doxycycline Hyclate) 100 Mg Tablet 100 MG PO BID, #14 TAB 0 Refills Prov: DARCY CONTEH MD 07/08/20 DARCY CONTEH MD Jul 08, 2020 15:46
--- NOTE | 2020-07-08 16:28 | Diagnostic Imaging Report ---
INDICATION: Cough, shortness of breath, nausea and vomiting. COMPARISON: 09/20/2018. FINDINGS: Right IJ catheter at the low SVC. Pleural reaction or fluid in the right base and costophrenic angle is improved from the prior. No focal alveolar consolidation. There is some chronic prominence of the perihilar interstitial lung markings. There is a benign-appearing chondroid lesion of the proximal right humerus, stable. Some biapical pleural-parenchymal scarring, chronic. IMPRESSION: 1. Decreased pleural reaction in the right base. Chronic interstitial opacities and benign findings, as described. No adverse development demonstrated. 2. Central line placed in good position. No pneumothorax. Dictated by: Dictated on workstation # [id number]
[2020-07-08] MEDS ORDERED: IBUPROFEN 600 MG (MOTRIN) TAB PO ONE (17:30)
[2020-07-08] MEDS ORDERED: LIDOCAINE 2% VISCOUS 15 ML UDC PO ONE (17:30)
[2020-07-08] MEDS ORDERED: ANTACID SUSP 30 ML UDC (MYLANTA) PO ONE (17:30)
[2020-07-08] MEDS ORDERED: DOXY100T2 PO (17:38)
[2020-07-08 17:59] VITALS: BP 116/73
== END 2020-07-08 17:58 | disposition home or self-care (01) ==
LOC: EDUNIT# 14:45 → ER 14:47
DX: J40 Bronchitis, not specified as acute or chronic (principal); I10 Essential (primary) hypertension; Z88.1 Allergy status to other antibiotic agents; Z88.8 Allergy status to other drugs, medicaments and biological substances; Z85.3 Personal history of malignant neoplasm of breast; Z20.822 Contact with and (suspected) exposure to COVID-19; Z85.118 Personal history of other malignant neoplasm of bronchus and lung; Z85.830 Personal history of malignant neoplasm of bone; Z79.01 Long term (current) use of anticoagulants
CPT/HCPCS: 71045; 99282; U0002; 87635

== ENCOUNTER 2021-07-04 18:22 | Emergency (ER) | payer MEDICARE, MEDICAID ==
[~2021-07-04 18:22] MED LIST changes: +DOXY100T2 PO
[2021-07-04] MEDS ORDERED: NS IV 1000 ML 1,000 ML IV SCH ×2 (19:00→21:15)
--- NOTE | 2021-07-04 19:07 | ED General ---
General Chief Complaint: Respiratory Problems Stated Complaint: TROUBLE BREATHING;CANCER;LEGS NUMB Source of Information: Patient, Caregiver (daughter) Exam Limitations: No Limitations (patient is hard of hearing) History of Present Illness Date Seen by Provider: Jul 04, 2021 Time Seen by Provider: 18:50 Initial Comments Patient is an 89yo female with a history of metastatic cancer who recently (in the last 6 weeks) came to live with her daughter. Daughter presents with patient stating that in the last 1-2 days she is much weaker than she was when she first came to live with her. Sleeping more. Not eating as much. In bed almost all day today. No known fevers. Patient states she feels a little short of breath - denies pain. Last BM was 2 days ago. No burning with urination. No productive cough. Daughter states primary cancer was breast - in the early . SHe sees Dr Hernandez in [place]. Daughter states "they never let me go back with her". Daughter is not sure what her cancer treatment plan is. She is not currently in Hospice. I did have a brief talk with the daughter relating to goals of care and the benefits of hospice on quality of life, I encouraged the daughter to be more involved and push Dr Hernandez's office to inform her better of her mother's treatment plan and prognosis. She agreed. All other ROS reviewed and negative except as stated. Timing/Duration: 1-2 Days Severity: Moderate Associated Systoms: Malaise, Shortness of Air (daughter states appears short of breath), Weakness Allergies and Home Medications Allergies Coded Allergies: cefdinir (Verified Allergy, Mild, 09/19/18) esomeprazole (Verified Allergy, Mild, 09/19/18) metoclopramide (Verified Allergy, Mild, 09/19/18) Patient Home Medication List Home Medication List Reviewed: Yes Amoxicillin (Amoxicillin) 500 Mg Capsule, 500 MG PO TID Prescribed by: DARCY CONTEH on 07/04/212100 Apixaban (Eliquis) 2.5 Mg Tablet, 2.5 MG PO BID Prescribed by: DUKE MENESES on 09/21/18 1314 Capecitabine (Xeloda) 500 Mg Tablet, 500 MG PO UD, (Reported) Entered as Reported by: JESSICA SHAHID on 09/20/18 1350 Diltiazem HCl (Diltiazem 24Hr Cd) 240 Mg Cap.er.24h, 240 MG PO DAILY Prescribed by: DUKE MENESES on 09/21/18 1314 Doxycycline Hyclate (Doxycycline Hyclate) 100 Mg Tablet, 100 MG PO BID Prescribed by: DARCY CONTEH on 07/08/20 1738 Fentanyl (Fentanyl Patch 50 MCG) 1 Each Patch.td72, 50 MCG TD Q72H, (Reported) Entered as Reported by: JESSICA SHAHID on 09/20/18 135 Gabapentin (Gabapentin) 300 Mg Capsule, 300 MG PO 0600,1200,1800, (Reported) Entered as Reported by: JESSICA SHAHID on 09/20/18 135 Hydrocodone Bit/Acetaminophen (Lortab 5 Mg Tablet) 1 Each Tablet, 1-2 TAB PO Q4H PRN for PAIN-BREAKTHROUGH, (Reported) Entered as Reported by: JESSICA SHAHID on 09/20/18 135 Lisinopril (Lisinopril) 20 Mg Tablet, 20 MG PO 1000, (Reported) Entered as Reported by: JESSICA SHAHID on 09/20/18 135 Metformin HCl (Metformin HCl ER) 500 Mg Tab.er.24h, 500 MG PO 1900, (Reported) Entered as Reported by: JESSICA SHAHID on 09/20/18 135 Ondansetron (Ondansetron Odt) 4 Mg Tab.rapdis, 4 MG PO Q6H PRN for NAUSEA/VOMITING-1ST LINE, (Reported) Entered as Reported by: JESSICA SHAHID on 09/20/18 135 Pantoprazole Sodium (Pantoprazole Sodium) 40 Mg Tablet.dr, 40 MG PO 1000, (Reported) Entered as Reported by: JESSICA SHAHID on 09/20/18 135 Review of Systems Review of Systems Constitutional: see HPI EENTM: no symptoms reported Respiratory: short of breath Cardiovascular: no symptoms reported Gastrointestinal: no symptoms reported Genitourinary: no symptoms reported : No Musculoskeletal: no symptoms reported Skin: no symptoms reported Psychiatric/Neurological: Weakness All Other Systems Reviewed Negative Unless Noted: Yes Past Ayxfmew-Djembr-Bckknm Hx Patient Social History Tobacco Use?: No Substance use?: No Alcohol Use?: No Pt feels they are or have been: No Immunizations Up To Date Influenza Vaccine Up-to-Date: No; Not Current Seasonal Allergies Seasonal Allergies: No Past Medical History Surgery/Hospitalization HX: CANCER, AFIB, HTN, DM Surgeries: Yes Respiratory: No Cardiac: Yes Hypertension Neurological: No Genitourinary: No Gastrointestinal: No Musculoskeletal: No Endocrine: Yes Diabetes, Non-Insulin dep HEENT: No Cancer: Yes Bone, Lung, Breast Did You Recieve Any Treatments: Yes What Type of Treatment Did You: Chemotherapy, Radiation, Surgical Intervention Psychosocial: No Integumentary: No Blood Disorders: No Adverse Reaction/Blood Tranf: No Physical Exam Vital Signs Vital Signs - First Documented 07/04/21 07/04/21 18:35 21:31 Temp 36.5 Pulse 105 Resp 20 B/P (MAP) 124/57 (79) Pulse Ox 94 O2 Delivery Room Air Capillary Refill : Height, Weight, BMI Height: 4'11.00" Weight: 119lbs. 2.0oz. 54.837304us; 22.00 BMI Method: General Appearance: WD/WN, Chronically ill, Mild Distress (moaning a little with breaths) Eyes: Bilateral Eye Normal Inspection, Bilateral Eye PERRL, Bilateral Eye EOMI, Bilateral Eye Conjunctivae Pale (slightly pale) HEENT: Other (dry oral mucosa; upper and lower dentures in place) Neck: Normal Inspection, Other (nodule, subcutaneous left lateral neck) Respiratory: Lungs Clear, Normal Breath Sounds, No Accessory Muscle Use, No Respiratory Distress, Other (slightly tachypneic) Cardiovascular: Normal Peripheral Pulses, Tachycardia Gastrointestinal: Non Tender, Soft Extremity: Normal Inspection, Normal Range of Motion, Non Tender, No Calf Tenderness Neurologic/Psychiatric: Alert, Oriented x3, No Motor/Sensory Deficits Skin: Warm/Dry, Pallor, Other (poor skin turgor) Focused Exam Lactate Level 07/04/21 19:00: Lactic Acid Level 1.42 Lactic Acid Level Laboratory Tests Test 07/04/21 19:00 Lactic Acid Level 1.42 MMOL/L (0.50-2.00) Progress/Results/Core Measures Suspected Sepsis SIRS Temperature: Pulse: Respiratory Rate: Laboratory Tests 07/04/21 19:00: White Blood Count 6.6 Blood Pressure / Mean: 07/04/21 19:00: Lactic Acid Level 1.42 Laboratory Tests 07/04/21 19:00: Creatinine 1.09, INR Comment 1.4, Platelet Count 81L, Total Bilirubin 1.4H Results/Orders Lab Results Laboratory Tests Test 07/04/21 19:00 07/04/21 19:15 Range/Units White Blood Count 6.6 4.3-11.0 10^3/uL Red Blood Count 1.98 L 3.80-5.11 10^6/uL Hemoglobin 6.9 *L 11.5-16.0 g/dL Hematocrit 21 L 35-52 % Mean Corpuscular Volume 107 H 80-99 fL Mean Corpuscular Hemoglobin 35 H 25-34 pg Mean Corpuscular Hemoglobin Concent 33 32-36 g/dL Red Cell Distribution Width 15.8 H 10.0-14.5 % Platelet Count 81 L 130-400 10^3/uL Mean Platelet Volume 10.5 9.0-12.2 fL Immature Granulocyte % (Auto) 6 % Neutrophils (%) (Auto) 70 42-75 % Lymphocytes (%) (Auto) 14 12-44 % Monocytes (%) (Auto) 9 0-12 % Eosinophils (%) (Auto) 1 0-10 % Basophils (%) (Auto) 0 0-10 % Neutrophils # (Auto) 4.6 1.8-7.8 10^3/uL Lymphocytes # (Auto) 0.9 L 1.0-4.0 10^3/uL Monocytes # (Auto) 0.6 0.0-1.0 10^3/uL Eosinophils # (Auto) 0.0 0.0-0.3 10^3/uL Basophils # (Auto) 0.0 0.0-0.1 10^3/uL Immature Granulocyte # (Auto) 0.4 H 0.0-0.1 10^3/uL Percent Immature Platelet Fraction 2.8 0.0-7.6 % Prothrombin Time 17.7 H 12.2-14.7 SEC INR Comment 1.4 0.8-1.4 Activated Partial Thromboplast Time 115 *H 24-35 SEC Sodium Level 136 135-145 MMOL/L Potassium Level 4.3 3.6-5.0 MMOL/L Chloride Level 104 98-107 MMOL/L Carbon Dioxide Level 20 L 21-32 MMOL/L Anion Gap 12 5-14 MMOL/L Blood Urea Nitrogen 18 7-18 MG/DL Creatinine 1.09 0.60-1.30 MG/DL Estimat Glomerular Filtration Rate 49 BUN/Creatinine Ratio 17 Glucose Level 105 70-105 MG/DL Lactic Acid Level 1.42 0.50-2.00 MMOL/L Calcium Level 7.9 L 8.5-10.1 MG/DL Corrected Calcium 8.9 8.5-10.1 MG/DL Total Bilirubin 1.4 H 0.1-1.0 MG/DL Aspartate Amino Transf (AST/SGOT) 68 H 5-34 U/L Alanine Aminotransferase (ALT/SGPT) 47 0-55 U/L Alkaline Phosphatase 145 H 40-136 U/L Total Protein 5.3 L 6.4-8.2 GM/DL Albumin 2.7 L 3.2-4.5 GM/DL Urine Color YELLOW Urine Clarity SL CLOUDY Urine pH 6.0 5-9 Urine Specific [place] 1.010 L 1.016-1.022 Urine Protein NEGATIVE NEGATIVE Urine Glucose (UA) NEGATIVE NEGATIVE Urine Ketones NEGATIVE NEGATIVE Urine Nitrite NEGATIVE NEGATIVE Urine Bilirubin NEGATIVE NEGATIVE Urine Urobilinogen 2.0 < = 1.0 MG/DL Urine Leukocyte Esterase TRACE H NEGATIVE Urine RBC (Auto) NEGATIVE NEGATIVE Urine RBC NONE /HPF Urine WBC 5-10 H /HPF Urine Squamous Epithelial Cells 0-2 /HPF Urine Renal Epithelial Cells 0-2 /HPF Urine Crystals NONE /LPF Urine Bacteria FEW H /HPF Urine Casts PRESENT /LPF Urine Hyaline Casts 0-2 H /LPF Urine Mucus NEGATIVE /LPF Urine Culture Indicated CULTURE PENDING My Orders Orders - ADRCY CONTEH MD Cbc With Automated Diff (07/04/21 18:59) Comprehensive Metabolic Panel (07/04/21 18:59) Blood Culture (07/04/21 18:59) Sputum Culture (07/04/21 18:59) Urinalysis (07/04/21 18:59) Urine Culture (07/04/21 18:59) Protime With Inr (07/04/21 18:59) Partial Thromboplastin Time (07/04/21 18:59) Chest 1 View, Ap/Pa Only (07/04/21 18:59) Ed Iv/Invasive Line Start (07/04/21 18:59) Ed Iv/Invasive Line Start (07/04/21 18:59) Vital Signs Adult Sepsis Patie Q15M (07/04/21 18:59) O2 (07/04/21 18:59) Remove Rings In Anticipation O (07/04/21 18:59) Lactic Acid Analyzer (07/04/21 18:59) Ekg Tracing (07/04/21 18:59) Ns Iv 1000 Ml (Sodium Chloride 0.9%) (07/04/21 19:00) Type And Screen (07/04/21 19:52) Blood Products Transfusion: Re (07/04/21 19:52) Red Cells Leukocytes Reduced (07/04/21 19:53) Amoxicillin Capsule (Polymox Capsule) (07/04/21 19:59) Amoxicillin Capsule (Polymox Capsule) (07/04/21 20:11) Ekg Tracing (07/04/21 21:01) Ns Iv 1000 Ml (Sodium Chloride 0.9%) (07/04/21 21:15) Diltiazem Injection (Cardizem Injection) (07/04/21 21:15) Ns Iv 500 Ml (Sodium Chloride 0.9%) (07/04/21 21:18) Medications Given in ED Current Medications Medications Dose Ordered Sig/Shonna Route Start Time Stop Time Status Last Admin Dose Admin Diltiazem HCl 10 mg ONCE ONCE IVP 07/04/21 21:15 07/04/21 21:16 DC 07/04/21 21:11 10 MG Vital Signs/I&O 07/04/21 07/04/21 07/04/21 07/04/21 18:35 21:31 21:46 22:39 Temp 36.5 36.8 37.0 36.8 Pulse 105 142 106 100 Resp 20 16 16 16 B/P (MAP) 124/57 (79) 114/80 124/68 124/63 Pulse Ox 94 95 96 O2 Delivery Room Air Room Air Room Air Capillary Refill : Progress Note #1: Time: 21:03 Progress Note feels great. [facility] here in town. Has had one liter of fluids - when I sent Luke in to ask about pharmacy choice it was noted she is now in Afib with RVR at 140-150. asymptomatic. Will repeat EKG and give second liter of fluids. Progress Note #2: Time: 21:47 Progress Note Heart rate noted to be back down to 105 and a normal sinus rhythm on telemetry. This is post 10 mg IV Cardizem and her home 240 mg of diltiazem extended release. Progress Note #3: Time: 22:46 Progress Note Blood completed. Tolerated well. VSS. no complaints. ECG Initial ECG Impression Date: Jul 04, 2021 Initial ECG Impression Time: 19:35 Initial ECG Rate: 94 Initial ECG Rhythm: Normal Sinus Initial ECG Intervals: Normal Initial ECG Impression: Nonspecific Changes EKG : EKG Time: 21:34 Rate: 146 Rhythm: A Fib/Flutter Intervals: ME (variable) ECG Comparisson: Changed ECG Impression: Atrial Fibrillation w/RVR Critical Care Note Critical Care Start Time: 21:00 Stop Time: 21:48 Total Time (minutes) 30 minutes critical care time in the evaluation and management of this patient with anemia, hemoglobin of 6.9 and pneumonia who came in in sinus rhythm and converted to atrial fibrillation with rapid ventricular response with rates as high as 155. Patient was given IV Cardizem and p.o. Cardizem, IVF; has subsequently converted back into normal sinus. Time includes monitoring, medication management, review and interpretation of labs, imaging, past medical records. Time also includes discussion with family member. Departure Impression Primary Impression: Pneumonia Qualified Codes: J18.9 - Pneumonia, unspecified organism Additional Impressions: Anemia Qualified Codes: D64.9 - Anemia, unspecified Metastatic cancer Qualified Codes: C79.9 - Secondary malignant neoplasm of unspecified site Generalized weakness Atrial fibrillation with RVR Disposition: 01 HOME, SELF-CARE Condition: Stable Departure-Patient Inst. Decision time for Depature: 20:56 Referrals: NO,LOCAL PHYSICIAN (PCP/Family) Primary Care Physician Patient Instructions: Community-Acquired Pneumonia in Adults Add. Discharge Instructions: Drink plenty of fluids to stay well hydrated. Continue your routine daily medications. Amoxicillin for pneumonia 3 times a day for 7 days. Please keep all scheduled follow up appointments. Please let your Cancer doctor know that you were seen today and had 1 unit of blood transfused for anemia. Come back to the Emergency Department for any new, concerning or emergent complaints. Scripts Amoxicillin (Amoxicillin) 500 Mg Capsule 500 MG PO TID, #21 CAP 0 Refills Prov: DARCY CONTEH MD 07/04/21 DARCY CONTEH MD Jul 04, 2021 19:07
[2021-07-04 19:12] LABS: EOSINOPHILS % (AUTO) 1 % (0-10)
[2021-07-04 19:14] LABS: BASOPHILS % (AUTO) 0 % (0-10); HEMATOCRIT 21 % (35-52); LYMPHOCYTES # (AUTO) 0.9 10^3/uL (1.0-4.0); LYMPHOCYTES % (AUTO) 14 % (12-44); MEAN CORPUSCULAR HEMOGLOBIN 35 pg (25-34); MEAN CORPUSCULAR HGB CONC 33 g/dL (32-36); MEAN CORPUSCULAR VOLUME 107 fL (80-99); MEAN PLATELET VOLUME 10.5 fL (9.0-12.2); MONOCYTES # (AUTO) 0.6 10^3/uL (0.0-1.0); MONOCYTES % (AUTO) 9 % (0-12); NEUTROPHILS # (AUTO) 4.6 10^3/uL (1.8-7.8); NEUTROPHILS % (AUTO) 70 % (42-75); PLATELET COUNT 81 10^3/uL (130-400); WHITE BLOOD COUNT 6.6 10^3/uL (4.3-11.0)
[2021-07-04 19:18] LABS: HEMOGLOBIN 6.9 g/dL (11.5-16.0)
--- NOTE | 2021-07-04 19:25 | Diagnostic Imaging Report ---
INDICATION: Respiratory problems. Breast cancer with metastatic disease to the lungs and liver. On chemotherapy. EXAMINATION: Chest, 07/04/2021. COMPARISON: 07/08/2020. FINDINGS: There is a chest port on the right, stable from previous imaging. The heart is unchanged. Pulmonary vasculature normal. Infiltrate seen at the right lung base. Remaining lung changes appear chronic. There may be a small right pleural effusion. There is no pneumothorax. There is deformity of the left 3rd rib similar to previous imaging. 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 This is stable from previous imaging. IMPRESSION: 1. Right base infiltrate with remaining changes stable. 2. Not mentioned above, there is a questionable sclerotic focus in the mid thoracic vertebral body. A metastatic process not excluded. Dictated by: Dictated on workstation # [id number]
[2021-07-04 19:26] LABS: BILIRUBIN,URINE NEGATIVE (NEGATIVE); CLARITY,URINE SL CLOUDY; COLOR,URINE YELLOW; GLUCOSE, URINE (UA) NEGATIVE (NEGATIVE); KETONES,URINE NEGATIVE (NEGATIVE); LEUKOCYTE ESTERASE ,URINE TRACE (NEGATIVE); NITRITE,URINE NEGATIVE (NEGATIVE); PROTEIN,URINE NEGATIVE (NEGATIVE)
[2021-07-04 19:33] LABS: INR 1.4 (0.8-1.4); PROTHROMBIN TIME PATIENT 17.7 SEC (12.2-14.7)
[2021-07-04 19:42] LABS: ALBUMIN 2.7 GM/DL (3.2-4.5); BILIRUBIN,TOTAL 1.4 MG/DL (0.1-1.0); CALCIUM 7.9 MG/DL (8.5-10.1); CREATININE SERUM 1.09 MG/DL (0.60-1.30); POTASSIUM 4.3 MMOL/L (3.6-5.0); TOTAL PROTEIN 5.3 GM/DL (6.4-8.2)
[2021-07-04 19:44] LABS: BACTERIA,URINE FEW /HPF; RENAL EPITHELIAL CELLS,URINE 0-2 /HPF; SQUAMOUS EPITHELIAL CELL,UR 0-2 /HPF
[2021-07-04 19:45] LABS: HYALINE CASTS, URINE 0-2 /LPF
[2021-07-04] MEDS ORDERED: AMOXICILLIN 250 MG (POLYMOX) CAP PO STA (19:59)
[2021-07-04] MEDS ORDERED: AMOXICILLIN 500 MG (POLYMOX) CAP PO ONE (20:11)
[2021-07-04] MEDS ORDERED: AMOX500C2 PO (21:01)
[2021-07-04] MEDS ORDERED: NS IV 500 ML 500 ML ONE (21:18)
[2021-07-04 21:31] VITALS: BP 114/80
[2021-07-04 21:46] VITALS: BP 124/68
[2021-07-04 22:39] VITALS: BP 124/63
[2021-07-04 22:57] VITALS: BP 125/68
== END 2021-07-04 23:01 | disposition home or self-care (01) ==
LOC: EDUNIT# 18:22 → ER 18:24
DX: C79.9 Secondary malignant neoplasm of unspecified site (principal); J18.9 Pneumonia, unspecified organism; D64.9 Anemia, unspecified; I48.20 Chronic atrial fibrillation, unspecified; R00.0 Tachycardia, unspecified
CPT/HCPCS: 71045; 80053; 81000; 83605; 85025; 85610; 85730; 86850; 86900; 86901; 86920; 87040; 87088; 93005; 99284; P9016; 36415